=== PATIENT | male | born 1960 | race African-American/Black ===

== ENCOUNTER → 2017-06-15 | Outpatient (CLI) | payer BC, OTHER ==
--- NOTE | ~2017-06-15 | EKG ---
[address] [address] ELECTROCARDIOGRAM REPORT Name: TASHI CHUNG [facility]: [facility]Delon[id number] Admission: 06/15/17 Attend Phys: Zeinab Miramontes MD Discharge: Date of : 56 Report #: [id number] THIS REPORT FOR: //name// [facility] Test Date: 2017-06-15 Test Time: 09:05:26 Pat Name: TASHI CHUNG Department: Room: Gender: M Core Baker: : 1960 Requested By: Zeinab Miramontes Order Number: [id number] MD: Epifanio Love Measurements Intervals [place] Rate: 72 P: 45 HI: 162 QRS: 46 QRSD: 97 T: 39 QT: 356 QTc: 390 Interpretive Statements Sinus rhythm No significant abnormality Compared to ECG 12/31/2001 08:23:36 No significant changes Electronically Signed On 06-15-2017 17:34:05 [employer]AND[employer] DIRECTOR by Epifanio Love [email or web address] <ELECTRONICALLY SIGNED> By: Epifanio Love MD, [facility] 06/15/17 1734 0905 09 Epifanio Love MD, FACC /EPI
== END ==
LOC: CV 08:48
DX: Z01.818 Encounter for other preprocedural examination (principal); E11.9 Type 2 diabetes mellitus without complications; I10 Essential (primary) hypertension